=== PATIENT | male | born 1980 | race Asian ===

== ENCOUNTER 2018-01-23 11:25 | Outpatient (CLI) | payer OTHER ==
--- NOTE | 2018-01-23 14:10 | ULT ---
ULTRASOUND WITH DOPPLER DUPLEX VENOUS LOWER EXTREMITY RIGHT: 01/23/18 HISTORY: 37-year-old male with right calf pain. TECHNIQUE: Color flow Doppler, spectral waveform analysis of pulsed Doppler, and villagran-scale imaging with yoly ruby and augmentation, were used to evaluate the right common femoral, femoral, popliteal, posterior tibial, and superficial femoral, veins; and the proximal portions of the profunda femoral and greater saphenous, veins. FINDINGS: There is normal compressibility, demonstration of blood flow by color Doppler and pulsed Doppler, and response to augmentation, in all interrogated veins. IMPRESSION: Negative. No deep vein thrombosis in the right lower extremity. jn [] POS: PACO
== END 2018-01-23 11:26 | disposition home or self-care (01) ==
LOC: SCSULT 11:25
PROVIDERS: ATTEND Family Medicine
DX: M79.661 Pain in right lower leg (principal)

== ENCOUNTER 2019-11-19 06:56 | Outpatient (CLI) | payer OTHER ==
[2019-11-19 18:45] LABS: #Basophils 0.1 thou/uL (0.0-0.2); #Eosinphils 0.1 thou/uL (0.0-0.7); #Lymphocytes 2.5 thou/uL (1.20-3.40); #Monocytes 0.6 thou/uL (0.11-0.59); #Neutrophils 5.4 thou/uL (1.40-6.50); %Basophils 1.3 % (0.0-1.0); %Eosinophils 0.8 % (0.0-10.0); %Lymphocytes 28.5 % (21.0-51.0); %Monocytes 6.7 % (0.0-10.0); %Neutrophils 62.6 % (42.0-75.0); Hemoglobin 18.1 g/dL (14.0-18.0); Mean Corpuscular HGB CONC 33.3 g/dL (32.0-36.0); Mean Corpuscular Hemoglobin 30.9 pg (27.0-31.0); Mean Corpuscular Volume 92.8 fL (78.0-98.0); Mean Platelet Volume 8.1 fL (7.4-10.4); Platelet Count 217 thou/uL (130-400); RBC Distribution Width 11.9 % (11.5-14.5); Red Blood Cell (RBC) Count 5.85 mill/uL (4.70-6.10); White Blood Cell (WBC) Count 8.6 thou/uL (4.8-10.8)
[2019-11-20 17:27] LABS: SARS-CoV-2 MS2 Positive; SARS-CoV-2 N Gene Negative; SARS-CoV-2 S Gene Negative; SARS-CoV-2 orf1ab Negative
== END 2019-11-19 06:57 | disposition home or self-care (01) ==
LOC: LABBT 06:56
PROVIDERS: ATTEND Orthopaedic Surgery
DX: Z01.812 Encounter for preprocedural laboratory examination (principal); Z11.59 Encounter for screening for other viral diseases; M77.11 Lateral epicondylitis, right elbow
CPT/HCPCS: 85025; 87635; U0003

== ENCOUNTER 2020-12-19 06:09 | Day surgery (SDC) | payer OTHER ==
[2020-12-18 09:39] VITALS: BMI 27.0
[2020-12-19] MEDS ORDERED: Fentanyl 100 MCG/2 ML VIAL ONE (06:44)
[2020-12-19] MEDS ORDERED: Albuterol Sulfate HFA (OR ONLY) ONE ×2 (06:44→06:53)
[2020-12-19] MEDS ORDERED: Lidocaine 4% Topical Sol 50 ML BOT ONE (06:44)
[2020-12-19] MEDS ORDERED: EPINEPHrine 1 MG/ML AMP ONE (06:47)
[2020-12-19] MEDS ORDERED: Acetaminophen 500 MG TAB ONE (07:04)
[2020-12-19] MEDS ORDERED: Midazolam HCl 2 mg/2 ml Vial ONE (07:17)
[2020-12-19] MEDS ORDERED: Lidocaine 1% PF 5 ML VIAL ONE (07:23)
[2020-12-19] MEDS ORDERED: Rocuronium Bromide 10 MG/ML (10ML VIAL) ONE (07:23)
[2020-12-19] MEDS ORDERED: Succinylcholine 200 MG/10 ml SYRINGE FS ONE (07:23)
[2020-12-19] MEDS ORDERED: Dexamethasone 20 MG/5 ML VIAL ONE (07:23)
[2020-12-19] MEDS ORDERED: Ketorolac Tromethamine 30 MG/ML VIAL ONE (07:23)
[2020-12-19] MEDS ORDERED: PROPOFOL 200 MG/20 ML VIAL ONE (07:23)
[2020-12-19] MEDS ORDERED: Ondansetron PF 4 MG/2 ML Vial ONE (07:23)
[2020-12-19] MEDS ORDERED: AFRIN NASAL MIST 15 ML BOT ONE (07:53)
[2020-12-19] MEDS ORDERED: Hydrocodone-Acetamin 15 ML UDCUP ONE (09:29)
== END 2020-12-19 10:25 | disposition home or self-care (01) ==
LOC: SDC 06:09
PROVIDERS: ATTEND Student in an Organized Health Care Education/Training Program
PROC: 0CBM8ZX Excision of Pharynx, Via Natural or Artificial Opening Endoscopic, Diagnostic (ICD-10-PCS; principal; 2020-12-19)
DX: K13.29 Other disturbances of oral epithelium, including tongue (principal); G47.33 Obstructive sleep apnea (adult) (pediatric); G47.00 Insomnia, unspecified; Z79.899 Other long term (current) drug therapy; Z88.1 Allergy status to other antibiotic agents
CPT/HCPCS: 88305; 88341; 88342; 93005; 93010; J0171; J1100; J1885; J2250; J2405; J2704; J3010

== ENCOUNTER 2021-01-10 15:33 | Outpatient (CLI) | payer OTHER | END 2021-01-10 15:34 | disposition home or self-care (01) | LOC: RAD 15:33 | PROVIDERS: ATTEND Student in an Organized Health Care Education/Training Program | DX: R13.11 Dysphagia, oral phase (principal); R13.19 Other dysphagia; R63.3 Feeding difficulties | CPT/HCPCS: 74220 ==

== ENCOUNTER 2022-03-27 04:57 | Emergency (ER) | payer BC ==
[2022-03-27] MEDS ORDERED: Ondansetron PF 4 MG/2 ML Vial ONE ×2 (05:40→06:20)
[2022-03-27] MEDS ORDERED: Morphine 4 MG/ML VIAL ONE ×2 (05:40→06:20)
[2022-03-27 05:48] LABS: #Basophils 0.1 thou/uL (0.0-0.2); #Eosinphils 0.1 thou/uL (0.0-0.7); #Lymphocytes 2.5 thou/uL (1.20-3.40); #Monocytes 0.4 thou/uL (0.11-0.59); #Neutrophils 3.7 thou/uL (1.40-6.50); %Eosinophils 1.9 % (0.0-10.0); %Lymphocytes 37.1 % (21.0-51.0); %Monocytes 6.2 % (0.0-10.0); %Neutrophils 53.8 % (42.0-75.0); Hemoglobin 17.9 g/dL (14.0-18.0); Mean Corpuscular HGB CONC 33.4 g/dL (32.0-36.0); Mean Corpuscular Hemoglobin 30.4 pg (27.0-31.0); Mean Platelet Volume 8.2 fL (7.4-10.4); Platelet Count 218 thou/uL (130-400); RBC Distribution Width 12.1 % (11.5-14.5); Red Blood Cell (RBC) Count 5.89 mill/uL (4.70-6.10); White Blood Cell (WBC) Count 6.8 thou/uL (4.8-10.8)
[2022-03-27 06:12] LABS: ALT (SGPT) 36 U/L (8-55); AST (SGOT) 29 U/L (5-34); Albumin 4.7 g/dL (3.5-5.0); Alkaline Phosphatase 63 U/L (40-110); Anion Gap 14 mmol/L (10-20); BUN (Urea Nitrogen) 18 mg/dL (8.9-20.6); Bilirubin, Total 1.2 mg/dL (0.2-1.2); Calc. Creatinine Clearance 0 mL/min (70-130); Calcium 9.1 mg/dL (7.8-10.44); Carbon Dioxide 26 mmol/L (22-29); Chloride 104 mmol/L (98-107); Estimated GFR 107; Globulin 3.4 g/dL (2.4-3.5); Glucose 116 mg/dL (70-105); Potassium 3.9 mmol/L (3.5-5.1); Protein, Total 8.1 g/dL (6.0-8.3); Sodium 140 mmol/L (136-145)
[2022-03-27 06:15] LABS: Bacteria/HPF None Seen HPF (None Seen); Bilirubin Negative (Negative); Blood, Urine 3+ (Negative); Calcium Oxalate Crystals 3+ HPF (None Seen); Clarity Turbid (Clear); Glucose, Urine (Dipstick) Normal (Negative); Ketone, Urine Trace mg/dL (Negative); Leukocyte Negative Leu/uL (Negative); Nitrite Negative (Negative); Protein, Urine (Dipstick) 30 mg/dL (Neg-Trace); RBC/HPF Greater than 50 HPF (0-3); Specific Gravity, Urine 1.032 (1.002-1.036); Squamous Epithelial None Seen HPF (0-3); Urobilinogen Normal mg/dL (Less than 2)
[2022-03-27] MEDS ORDERED: Lidocaine 2% PF 100 mg/5 ml Syringe ONE (06:55)
[2022-03-27] MEDS ORDERED: Promethazine HCl 12.5 MG in Sodium Chloride 0.9% 50 ML IVPB SCH (07:00)
[2022-03-27] MEDS ORDERED: Lidocaine 2% PF 100 mg/5 ml Syringe IVP SCH (07:00)
[2022-03-27] MEDS ORDERED: Tamsulosin HCl 0.4 MG CAP PO SCH (09:15)
== END 2022-03-27 09:54 | disposition home or self-care (01) ==
LOC: ERS 04:57
DX: N13.2 Hydronephrosis with renal and ureteral calculous obstruction (principal)
CPT/HCPCS: 36415; 74176; 80053; 81003; 81015; 85025; 96365; 96375; 96376; J2001; J2270; J2405; J2550

== ENCOUNTER 2022-12-30 08:13 | Outpatient (CLI) | payer BC | END 2022-12-30 08:14 | disposition home or self-care (01) | LOC: NM 08:13 | PROVIDERS: ATTEND Family Medicine | DX: E05.00 Thyrotoxicosis with diffuse goiter without thyrotoxic crisis or storm (principal) | CPT/HCPCS: 78014; A9509 ==

== ENCOUNTER 2023-05-22 08:30 | Outpatient (CLI) | payer BC | END 2023-05-22 08:31 | disposition home or self-care (01) | LOC: NM 08:30 | PROVIDERS: ATTEND Internal Medicine Endocrinology, Diabetes & Metabolism | DX: E05.80 Other thyrotoxicosis without thyrotoxic crisis or storm (principal) | CPT/HCPCS: 78014; A9516 ==

== ENCOUNTER 2024-06-17 12:41 | Outpatient (CLI) | payer BC | END 2024-06-17 12:42 | disposition home or self-care (01) | LOC: SCSMRI 12:41 | DX: H05.20 Unspecified exophthalmos (principal); R90.82 White matter disease, unspecified | CPT/HCPCS: 70543; 70553; 76376 ==

== ENCOUNTER 2025-05-02 12:09 | Outpatient (CLI) | payer BC | END 2025-05-02 12:10 | disposition home or self-care (01) | LOC: BIOMETRIC 12:09 → SCSRAD 12:10 | PROVIDERS: ATTEND Family Medicine | DX: M25.511 Pain in right shoulder (principal) ==

== ENCOUNTER 2025-05-05 15:07 | Outpatient (CLI) | payer BC | END 2025-05-05 15:08 | disposition home or self-care (01) | LOC: SCSMRI 15:07 | PROVIDERS: ATTEND Family Medicine | DX: M25.511 Pain in right shoulder (principal); M75.111 Incomplete rotator cuff tear or rupture of right shoulder, not specified as traumatic ==